=== PATIENT | male | born 1965 | race Caucasian/White ===

== ENCOUNTER 2022-12-14 20:42 | Emergency (ER) | payer OTHER ==
[2022-12-14 22:11] LABS: ALT (SGPT) 50 U/L (8-55); AST (SGOT) 47 U/L (5-34); Albumin 2.9 g/dL (3.5-5.0); Alkaline Phosphatase 151 U/L (40-110); Anion Gap 13 mmol/L (10-20); BUN (Urea Nitrogen) 10 mg/dL (8.4-25.7); Calc. Creatinine Clearance 0 mL/min (70-130); Calcium 8.8 mg/dL (7.8-10.44); Carbon Dioxide 20 mmol/L (22-29); Chloride 110 mmol/L (98-107); Estimated GFR 105; Globulin 3.7 g/dL (2.4-3.5); Glucose 178 mg/dL (70-105); Lipase 43 U/L (8-78); Potassium 4.1 mmol/L (3.5-5.1); Protein, Total 6.6 g/dL (6.0-8.3); Sodium 139 mmol/L (136-145)
[2022-12-14 22:12] LABS: Hemoglobin 13.5 g/dL (13.5-17.5); Mean Corpuscular HGB CONC 36.4 g/dL (32.0-36.0); Mean Corpuscular Hemoglobin 31.4 pg (27.0-33.0); Mean Corpuscular Volume 86.3 fl (81.2-95.1); Mean Platelet Volume 11.4 fl (7.4-10.4); Platelet Count 98 10x3/uL (150-450); RBC Distribution Width 14.7 % (11.5-14.5); White Blood Cell (WBC) Count 4.4 10x3/uL (3.5-10.5)
[2022-12-14 22:12] LABS: Bilirubin 3+ (Negative); Blood, Urine 50 (Negative); Clarity Clear (Clear); Glucose, Urine (Dipstick) Normal (Negative); Ketone, Urine 5 mg/dL (Negative); Leukocyte 25 (Negative); Nitrite Negative (Negative); Protein, Urine (Dipstick) Negative (Neg-Trace); Specific Gravity, Urine 1.025 (1.005-1.030); Urobilinogen 12 mg/dL (Less than 2)
[2022-12-14 22:14] LABS: MDiff Complete? YES; Manual Diff?? YES
[2022-12-14 22:22] LABS: Bacteria/HPF None Seen HPF (None Seen); RBC/HPF 0-3 HPF (0-3); Squamous Epithelial 0-3 HPF (0-3); WBC/HPF 0-3 HPF (0-3)
[2022-12-14 22:41] LABS: Band 2 % (5-11); Eosinophils 7 % (0-10); Lymphocytes 17 % (21-51); Monocytes 14 % (0-10); Neutrophil 58 % (42-75); Reactive Lymphocytes 2 % (0-10)
[2022-12-14 22:42] LABS: Platelet Morphology Comment Appears Decreased
[2022-12-14 22:43] LABS: Anisocytosis SLIGHT = 6-15 cells (100X) (0-5/hpf); Macrocytosis SLIGHT = 6-15 cells (100X) (0-5/hpf); Microcytosis SLIGHT = 6-15 cells (100X) (0-5/hpf)
[2022-12-14 23:10] LABS: SARS-CoV-2 NAA Rapid Test DETECTED (NotDetected)
== END 2022-12-15 01:22 | disposition short-term general hospital (02) ==
LOC: CSHERS 20:42 → EEVIPCON 20:42 → CSHERS 12-15 01:22
DX: U07.1 COVID-19 (principal); K76.82 Hepatic encephalopathy; E11.9 Type 2 diabetes mellitus without complications; I50.9 Heart failure, unspecified; Z79.84 Long term (current) use of oral hypoglycemic drugs
CPT/HCPCS: 80053; 81003; 81015; 82140; 83605; 83690; 85025; 93005; 96360; U0002

== ENCOUNTER 2023-01-29 13:21 | Inpatient (IN) | payer OTHER ==
[2023-01-29 14:23] LABS: ALT (SGPT) 41 U/L (8-55); AST (SGOT) 40 U/L (5-34); Albumin 2.8 g/dL (3.5-5.0); Alkaline Phosphatase 129 U/L (40-110); Anion Gap 13 mmol/L (10-20); BUN (Urea Nitrogen) 9 mg/dL (8.4-25.7); Bilirubin, Total 5.2 mg/dL (0.2-1.2); Calc. Creatinine Clearance 0 mL/min (70-130); Calcium 7.7 mg/dL (7.8-10.44); Carbon Dioxide 17 mmol/L (22-29); Chloride 114 mmol/L (98-107); Estimated GFR 110; Globulin 3.2 g/dL (2.4-3.5); Glucose 151 mg/dL (70-105); Lipase 39 U/L (8-78); Magnesium 1.6 mg/dL (1.6-2.6); Potassium 3.8 mmol/L (3.5-5.1); Sodium 140 mmol/L (136-145)
[2023-01-29 14:27] LABS: #Basophils 0.1 10x3/uL (0.0-0.2); #Eosinphils 0.1 10x3/uL (0.0-0.5); #Monocytes 0.6 10x3/uL (0.0-1.1); %Basophils 1.5 % (0.0-2.0); %Eosinophils 3.3 % (0.0-6.0); %Lymphocytes 17.5 % (18.0-47.0); %Monocytes 17.5 % (0.0-10.0); %Neutrophils 59.6 % (40.0-75.0); Hemoglobin 11.5 g/dL (13.5-17.5); Mean Corpuscular HGB CONC 36.5 g/dL (32.0-36.0); Mean Corpuscular Hemoglobin 32.6 pg (27.0-33.0); Mean Corpuscular Volume 89.2 fl (81.2-95.1); Mean Platelet Volume 10.5 fl (7.4-10.4); Platelet Count 86 10x3/uL (150-450); RBC Distribution Width 17.2 % (11.5-14.5); Red Blood Cell (RBC) Count 3.53 10x6/uL (4.32-5.72); White Blood Cell (WBC) Count 3.4 10x3/uL (3.5-10.5)
[2023-01-29] MEDS ORDERED: Ibuprofen 200 MG TAB ONE (15:19)
[2023-01-29] MEDS ORDERED: cefTRIAXone (ROCEPHIN) 2 GM VIAL ONE (20:14)
[2023-01-29] MEDS ORDERED: Cefepime 2 GM VIAL ONE (20:42)
[2023-01-29] MEDS ORDERED: Dextrose 50% Abboject 50 ML SYRINGE SLOW IVP PRN (21:45)
[2023-01-29] MEDS ORDERED: Dextrose 5% in Water 1,000 ML IV PRN (21:45)
[2023-01-29] MEDS ORDERED: HumaLOG 300 UNITS/3 ML VIAL SC PRN (21:45)
[2023-01-29] MEDS ORDERED: Magnesium 2 GM/50 ML(in water) 2 GM in Premix Bag 1 BAG IVPB SCH (22:30)
[2023-01-29] MEDS ORDERED: Metoprolol Tartrate 25 MG TAB PO SCH (22:30)
[2023-01-29] MEDS ORDERED: Gabapentin 100 MG CAP PO SCH (22:30)
[2023-01-29] MEDS ORDERED: Potassium Chloride 20 MEQ in Premix Bag 1 BAG IVPB SCH (22:30)
[2023-01-29] MEDS ORDERED: levETIRAcetam 500 MG TAB PO SCH (22:30)
[2023-01-29] MEDS ORDERED: Magnesium 2 GM/50 ML BAG (IN WATER) ONE (22:32)
[2023-01-29] MEDS: Sodium Chloride 0.9% 1,000 ML IV SCH (22:38)
[2023-01-29] MEDS ORDERED: Rifaximin 550 MG TAB PO SCH (22:45)
[2023-01-29 22:59] LABS: Lactic Acid 2.2 mmol/L (0.5-2.2)
[2023-01-29] MEDS ORDERED: Metoprolol Tartrate 25 MG TAB ONE (23:28)
[2023-01-29] MEDS ORDERED: levETIRAcetam 500 MG TAB ONE (23:29)
[2023-01-29] MEDS ORDERED: RIFAXIMIN 200MG TABLET PO SCH (23:45)
[2023-01-30] MEDS ORDERED: Potassium Chloride 20 MEQ/100 ML PREMIX BAG ONE (01:29)
[2023-01-30] MEDS ORDERED: Lorazepam 2 MG/ML VIAL ONE (01:44)
[2023-01-30] MEDS ORDERED: Lorazepam 2 MG/ML VIAL SLOW IVP SCH (01:45)
[2023-01-30] MEDS: VANCOMYCIN 1.25 GM/250 ML BAG 1.25 GM in Premix Bag 1 BAG IVPB SCH ×2 (01:47→14:43)
[2023-01-30] MEDS ORDERED: Potassium Chloride 20 MEQ in Premix Bag 1 BAG IVPB SCH (02:00)
[2023-01-30 04:06] LABS: Anion Gap 10 mmol/L (10-20); BUN (Urea Nitrogen) 9 mg/dL (8.4-25.7); Calc. Creatinine Clearance 136 mL/min (70-130); Calcium 7.7 mg/dL (7.8-10.44); Carbon Dioxide 19 mmol/L (22-29); Chloride 113 mmol/L (98-107); Estimated GFR 108; Glucose 171 mg/dL (70-105); Magnesium 2.3 mg/dL (1.6-2.6); Potassium 4.3 mmol/L (3.5-5.1); Sodium 138 mmol/L (136-145)
[2023-01-30 04:09] LABS: Hemoglobin 11.6 g/dL (13.5-17.5); Mean Corpuscular HGB CONC 35.7 g/dL (32.0-36.0); Mean Corpuscular Volume 89.8 fl (81.2-95.1); Platelet Count 88 10x3/uL (150-450); RBC Distribution Width 17.2 % (11.5-14.5); Red Blood Cell (RBC) Count 3.62 10x6/uL (4.32-5.72)
[2023-01-30 04:11] LABS: MDiff Complete? YES
[2023-01-30 04:25] LABS: Band 7 % (5-11); Eosinophils 4 % (0-10); Lymphocytes 13 % (21-51); Monocytes 17 % (0-10); Neutrophil 59 % (42-75)
[2023-01-30 04:26] LABS: Platelet Morphology Comment Appears Decreased; RBC Morphology Normal
[2023-01-30 04:27] LABS: Free T4 (Free Thyroxine) 1.14 ng/dL (0.70-1.48); Thyroid Stimulating Hormone 4.6141 uIU/mL (0.35-4.94)
[2023-01-30] MEDS ORDERED: Metoprolol Tartrate 25 MG TAB ONE (08:49)
[2023-01-30] MEDS ORDERED: Multivitamin W/ Minerals 1 TAB ONE (08:50)
[2023-01-30] MEDS ORDERED: Cefepime 2 GM VIAL ONE (08:52)
[2023-01-30] MEDS ORDERED: RIFAXIMIN 200MG TABLET PO SCH (09:00)
[2023-01-30] MEDS ORDERED: Rifaximin 550 MG TAB PO SCH ×3 (09:00→21:00)
[2023-01-30] MEDS: Insulin Regular 300 UNITS/3 ML VIAL SC SCH ×3 (09:00→17:01)
[2023-01-30] MEDS: Cefepime 2 GM in Sodium Chloride 0.9% 100 ML IVPB SCH ×2 (09:16→20:28)
[2023-01-30] MEDS: Multivitamin W/ Minerals 1 TAB PO SCH (09:19)
[2023-01-30] MEDS: Metoprolol Tartrate 25 MG TAB PO SCH ×2 (09:19→20:31)
[2023-01-30] MEDS: Magnesium Oxide 400 MG TAB PO SCH (09:48)
[2023-01-30] MEDS: Gabapentin 100 MG CAP PO SCH ×3 (09:49→20:31)
[2023-01-30] MEDS: Thiamine 100 MG TAB PO SCH (09:50)
[2023-01-30] MEDS: Levothyroxine Sodium 25 MCG TAB PO SCH (09:50)
[2023-01-30] MEDS: Insulin NPH Human Isophane 100 UNITS/ML (10 ML VIAL) SC SCH ×2 (12:00→20:46)
[2023-01-30] MEDS ORDERED: Insulin Regular 300 UNITS/3 ML VIAL ONE (12:10)
[2023-01-30] MEDS ORDERED: traMADol HCl 50 MG TAB PO SCH (12:15)
[2023-01-30] MEDS: Sodium Chloride 0.9% 1,000 ML IV SCH (12:17)
[2023-01-30] MEDS ORDERED: traMADol HCl 50 MG TAB ONE (12:58)
[2023-01-30] MEDS: levETIRAcetam 500 MG TAB PO SCH (20:31)
[2023-01-31] MEDS: VANCOMYCIN 1.25 GM/250 ML BAG 1.25 GM in Premix Bag 1 BAG IVPB SCH ×2 (00:50→15:31)
[2023-01-31] MEDS: RIFAXIMIN 200MG TABLET PO SCH ×3 (00:56→22:04)
[2023-01-31] MEDS: Sodium Chloride 0.9% 1,000 ML IV SCH ×2 (01:30→16:44)
[2023-01-31 03:43] LABS: Vancomycin, Trough 39.7 ug/mL
[2023-01-31] MEDS ORDERED: Lorazepam 2 MG/ML VIAL SLOW IVP SCH (04:00)
[2023-01-31] MEDS: Levothyroxine Sodium 25 MCG TAB PO SCH (05:51)
[2023-01-31 10:39] LABS: Hemoglobin 11.7 g/dL (13.5-17.5); Mean Corpuscular HGB CONC 35.6 g/dL (32.0-36.0); Mean Corpuscular Volume 92.7 fl (81.2-95.1); Mean Platelet Volume 11.2 fl (7.4-10.4); Platelet Count 91 10x3/uL (150-450); RBC Distribution Width 17.4 % (11.5-14.5); Red Blood Cell (RBC) Count 3.55 10x6/uL (4.32-5.72); White Blood Cell (WBC) Count 5.7 10x3/uL (3.5-10.5)
[2023-01-31 10:40] LABS: MDiff Complete? YES
[2023-01-31] MEDS: Insulin Regular 300 UNITS/3 ML VIAL SC SCH ×3 (10:49→18:10)
[2023-01-31] MEDS: Insulin NPH Human Isophane 100 UNITS/ML (10 ML VIAL) SC SCH ×2 (10:50→22:06)
[2023-01-31] MEDS: Cefepime 2 GM in Sodium Chloride 0.9% 100 ML IVPB SCH (10:52)
[2023-01-31] MEDS: Metoprolol Tartrate 25 MG TAB PO SCH ×2 (10:52→21:59)
[2023-01-31] MEDS: Multivitamin W/ Minerals 1 TAB PO SCH (10:53)
[2023-01-31] MEDS: Thiamine 100 MG TAB PO SCH (10:53)
[2023-01-31] MEDS: Magnesium Oxide 400 MG TAB PO SCH (10:53)
[2023-01-31 10:56] LABS: Eosinophils 3 % (0-10); Lymphocytes 14 % (21-51); Monocytes 12 % (0-10); Neutrophil 71 % (42-75)
[2023-01-31] MEDS: Gabapentin 100 MG CAP PO SCH ×3 (11:03→22:05)
[2023-01-31 11:06] LABS: Anisocytosis SLIGHT = 6-15 cells (100X) (0-5/hpf); Platelet Morphology Comment Appears Decreased
[2023-01-31 12:26] LABS: Vancomycin, Trough 12.9 ug/mL
[2023-01-31 12:46] LABS: Anion Gap 15 mmol/L (10-20); BUN (Urea Nitrogen) 9 mg/dL (8.4-25.7); Calc. Creatinine Clearance 140 mL/min (70-130); Calcium 8.3 mg/dL (7.8-10.44); Carbon Dioxide 16 mmol/L (22-29); Chloride 114 mmol/L (98-107); Estimated GFR 109; Glucose 153 mg/dL (70-105); Magnesium 1.8 mg/dL (1.6-2.6); Potassium 4.1 mmol/L (3.5-5.1); Sodium 141 mmol/L (136-145)
[2023-01-31] MEDS: levETIRAcetam 500 MG TAB PO SCH (21:59)
[2023-02-01] MEDS: Sodium Chloride 0.9% 1,000 ML IV SCH ×3 (04:29→17:10)
[2023-02-01] MEDS ORDERED: Dicyclomine 10 MG CAP PO SCH (04:45)
[2023-02-01] MEDS: Levothyroxine Sodium 25 MCG TAB PO SCH (04:52)
[2023-02-01 07:40] LABS: Anion Gap 14 mmol/L (10-20); BUN (Urea Nitrogen) 9 mg/dL (8.4-25.7); Calc. Creatinine Clearance 142 mL/min (70-130); Calcium 7.5 mg/dL (7.8-10.44); Carbon Dioxide 17 mmol/L (22-29); Chloride 113 mmol/L (98-107); Estimated GFR 110; Glucose 136 mg/dL (70-105); Potassium 4.7 mmol/L (3.5-5.1); Sodium 139 mmol/L (136-145)
[2023-02-01 07:47] LABS: Hemoglobin 11.4 g/dL (13.5-17.5); Mean Corpuscular HGB CONC 36.2 g/dL (32.0-36.0); Mean Corpuscular Hemoglobin 32.5 pg (27.0-33.0); Mean Corpuscular Volume 89.7 fl (81.2-95.1); Mean Platelet Volume 10.8 fl (7.4-10.4); Platelet Count 91 10x3/uL (150-450); RBC Distribution Width 17.8 % (11.5-14.5); Red Blood Cell (RBC) Count 3.51 10x6/uL (4.32-5.72)
[2023-02-01 08:05] LABS: MDiff Complete? YES
[2023-02-01 08:24] LABS: Band 4 % (5-11); Eosinophils 8 % (0-10); Lymphocytes 18 % (21-51); Monocytes 10 % (0-10); Neutrophil 60 % (42-75); Platelet Morphology Comment Appears Decreased
[2023-02-01 08:26] LABS: Anisocytosis SLIGHT = 6-15 cells (100X) (0-5/hpf)
[2023-02-01] MEDS ORDERED: HYDROmorphone 0.5 MG/0.5 ML SYRINGE SLOW IVP SCH (09:00)
[2023-02-01] MEDS: Magnesium Oxide 400 MG TAB PO SCH (09:41)
[2023-02-01] MEDS: Multivitamin W/ Minerals 1 TAB PO SCH ×2 (09:41→09:42)
[2023-02-01] MEDS: Thiamine 100 MG TAB PO SCH (09:42)
[2023-02-01] MEDS: Metoprolol Tartrate 25 MG TAB PO SCH ×2 (09:42→21:32)
[2023-02-01] MEDS: Insulin Regular 300 UNITS/3 ML VIAL SC SCH ×3 (09:43→17:09)
[2023-02-01] MEDS: Insulin NPH Human Isophane 100 UNITS/ML (10 ML VIAL) SC SCH ×2 (09:44→21:55)
[2023-02-01] MEDS: RIFAXIMIN 200MG TABLET PO SCH (09:46)
[2023-02-01] MEDS: Gabapentin 100 MG CAP PO SCH ×3 (12:02→21:32)
[2023-02-01 15:12] LABS: Magnesium 1.7 mg/dL (1.6-2.6)
[2023-02-01] MEDS: levETIRAcetam 500 MG TAB PO SCH (21:32)
[2023-02-01] MEDS: Rifaximin 550 MG TAB PO SCH (21:38)
[2023-02-02] MEDS: Sodium Chloride 0.9% 1,000 ML IV SCH ×2 (00:29→17:43)
[2023-02-02 05:18] LABS: Anion Gap 13 mmol/L (10-20); BUN (Urea Nitrogen) 9 mg/dL (8.4-25.7); Calc. Creatinine Clearance 130 mL/min (70-130); Calcium 7.6 mg/dL (7.8-10.44); Carbon Dioxide 19 mmol/L (22-29); Chloride 111 mmol/L (98-107); Estimated GFR 107; Glucose 175 mg/dL (70-105); Potassium 3.8 mmol/L (3.5-5.1); Sodium 139 mmol/L (136-145)
[2023-02-02 05:26] LABS: Hemoglobin 10.9 g/dL (13.5-17.5); MDiff Complete? YES; Mean Corpuscular HGB CONC 36.1 g/dL (32.0-36.0); Mean Corpuscular Hemoglobin 32.6 pg (27.0-33.0); Mean Corpuscular Volume 90.4 fl (81.2-95.1); Mean Platelet Volume 11.7 fl (7.4-10.4); Platelet Count 84 10x3/uL (150-450); RBC Distribution Width 17.8 % (11.5-14.5); Red Blood Cell (RBC) Count 3.34 10x6/uL (4.32-5.72); White Blood Cell (WBC) Count 3.6 10x3/uL (3.5-10.5)
[2023-02-02] MEDS: Levothyroxine Sodium 25 MCG TAB PO SCH (06:03)
[2023-02-02 07:06] LABS: Band 4 % (5-11); Eosinophils 5 % (0-10); Lymphocytes 11 % (21-51); Monocytes 12 % (0-10); Neutrophil 68 % (42-75)
[2023-02-02 07:08] LABS: Macrocytosis SLIGHT = 6-15 cells (100X) (0-5/hpf)
[2023-02-02 07:09] LABS: Platelet Morphology Comment Appears Decreased
[2023-02-02] MEDS: Thiamine 100 MG TAB PO SCH (08:44)
[2023-02-02] MEDS: Multivitamin W/ Minerals 1 TAB PO SCH (08:44)
[2023-02-02] MEDS: Magnesium Oxide 400 MG TAB PO SCH (08:45)
[2023-02-02] MEDS: Metoprolol Tartrate 25 MG TAB PO SCH ×2 (08:45→21:23)
[2023-02-02] MEDS: Gabapentin 100 MG CAP PO SCH ×3 (08:47→21:23)
[2023-02-02] MEDS: Rifaximin 550 MG TAB PO SCH ×2 (08:50→21:23)
[2023-02-02] MEDS: Insulin Regular 300 UNITS/3 ML VIAL SC SCH ×3 (08:53→17:46)
[2023-02-02] MEDS: Insulin NPH Human Isophane 100 UNITS/ML (10 ML VIAL) SC SCH ×2 (08:59→21:22)
[2023-02-02] MEDS ORDERED: cefTRIAXone\\ROCEPHIN 2 GM in Sodium Chloride 0.9% 100 ML IVPB SCH (18:45)
[2023-02-02] MEDS ORDERED: cefTRIAXone\\ROCEPHIN 1 GM in Sodium Chloride 0.9% 100 ML IVPB SCH (18:45)
[2023-02-02] MEDS: cefTRIAXone\\ROCEPHIN 1 GM in Sodium Chloride 0.9% 100 ML IVPB SCH (21:21)
[2023-02-02] MEDS: levETIRAcetam 500 MG TAB PO SCH (21:22)
[2023-02-03] MEDS ORDERED: Ondansetron PF 4 MG/2 ML Vial IVP PRN (01:50)
[2023-02-03] MEDS: Acetaminophen 325 MG TAB PO PRN ×3 (01:59→18:41)
[2023-02-03] MEDS: Levothyroxine Sodium 25 MCG TAB PO SCH (05:59)
[2023-02-03 06:30] LABS: Hemoglobin 11.2 g/dL (13.5-17.5); Mean Corpuscular HGB CONC 36.2 g/dL (32.0-36.0); Mean Corpuscular Hemoglobin 32.7 pg (27.0-33.0); Mean Corpuscular Volume 90.4 fl (81.2-95.1); Mean Platelet Volume 10.8 fl (7.4-10.4); Platelet Count 87 10x3/uL (150-450); RBC Distribution Width 18.3 % (11.5-14.5); Red Blood Cell (RBC) Count 3.42 10x6/uL (4.32-5.72); White Blood Cell (WBC) Count 4.7 10x3/uL (3.5-10.5)
[2023-02-03 06:32] LABS: MDiff Complete? YES
[2023-02-03 06:38] LABS: ALT (SGPT) 44 U/L (8-55); AST (SGOT) 52 U/L (5-34); Albumin 2.4 g/dL (3.5-5.0); Alkaline Phosphatase 124 U/L (40-110); Anion Gap 12 mmol/L (10-20); BUN (Urea Nitrogen) 9 mg/dL (8.4-25.7); Bilirubin, Total 3.3 mg/dL (0.2-1.2); Calc. Creatinine Clearance 130 mL/min (70-130); Calcium 7.6 mg/dL (7.8-10.44); Carbon Dioxide 19 mmol/L (22-29); Chloride 111 mmol/L (98-107); Estimated GFR 107; Glucose 162 mg/dL (70-105); Magnesium 1.6 mg/dL (1.6-2.6); Potassium 4.1 mmol/L (3.5-5.1); Protein, Total 5.4 g/dL (6.0-8.3); Sodium 138 mmol/L (136-145)
[2023-02-03 08:12] LABS: Band 3 % (5-11); Eosinophils 4 % (0-10); Lymphocytes 21 % (21-51); Monocytes 11 % (0-10); Neutrophil 61 % (42-75); Platelet Morphology Comment Appears Decreased
[2023-02-03 08:13] LABS: Macrocytosis SLIGHT = 6-15 cells (100X) (0-5/hpf)
[2023-02-03 08:33] LABS: Clarity Clear (Clear); Leukocyte 25 (Negative); Nitrite Negative (Negative); Specific Gravity, Urine 1.015 (1.005-1.030); pH, Urine 6.5 (5.0-9.0)
[2023-02-03 08:34] LABS: Bilirubin 3+ (Negative); Blood, Urine 25 (Negative); Glucose, Urine (Dipstick) Normal (Negative); Ketone, Urine 5 mg/dL (Negative); Protein, Urine (Dipstick) 15 mg/dl (Neg-Trace); Urobilinogen 12 mg/dL (Less than 2)
[2023-02-03 08:42] LABS: Bacteria/HPF 1+ HPF (None Seen); CAUTI Indications for Culture Alt mental st,lethar
[2023-02-03] MEDS: Multivitamin W/ Minerals 1 TAB PO SCH (08:49)
[2023-02-03] MEDS: Magnesium Oxide 400 MG TAB PO SCH (08:49)
[2023-02-03] MEDS: Thiamine 100 MG TAB PO SCH (08:50)
[2023-02-03] MEDS: Insulin NPH Human Isophane 100 UNITS/ML (10 ML VIAL) SC SCH ×2 (08:51→21:38)
[2023-02-03] MEDS: Insulin Regular 300 UNITS/3 ML VIAL SC SCH ×3 (08:53→17:17)
[2023-02-03 09:06] LABS: Mucous/LPF 1+ LPF (<2+)
[2023-02-03 09:12] LABS: Urine Culture Reflex No No
[2023-02-03] MEDS: Gabapentin 100 MG CAP PO SCH ×3 (09:19→21:22)
[2023-02-03] MEDS: Rifaximin 550 MG TAB PO SCH ×2 (09:19→21:22)
[2023-02-03] MEDS: Metoprolol Tartrate 25 MG TAB PO SCH ×2 (09:21→21:23)
[2023-02-03] MEDS: Sodium Chloride 0.9% 1,000 ML IV SCH ×2 (09:22→21:33)
[2023-02-03] MEDS ORDERED: cefTRIAXone (ROCEPHIN) 1 GM VIAL ONE (21:04)
[2023-02-03] MEDS: cefTRIAXone\\ROCEPHIN 1 GM in Sodium Chloride 0.9% 100 ML IVPB SCH (21:26)
[2023-02-03] MEDS: levETIRAcetam 500 MG TAB PO SCH (21:38)
[2023-02-04] MEDS: Levothyroxine Sodium 25 MCG TAB PO SCH (06:33)
[2023-02-04 09:06] LABS: #Basophils 0.1 10x3/uL (0.0-0.2); #Eosinphils 0.5 10x3/uL (0.0-0.5); #Monocytes 0.7 10x3/uL (0.0-1.1); #Neutrophils 2.9 10x3/uL (1.5-8.4); %Basophils 1.8 % (0.0-2.0); %Eosinophils 9.1 % (0.0-6.0); %Lymphocytes 14.2 % (18.0-47.0); %Monocytes 14.8 % (0.0-10.0); %Neutrophils 59.9 % (40.0-75.0); Hemoglobin 11.7 g/dL (13.5-17.5); Mean Corpuscular Hemoglobin 32.8 pg (27.0-33.0); Mean Corpuscular Volume 93.6 fl (81.2-95.1); Mean Platelet Volume 11.3 fl (7.4-10.4); Platelet Count 101 10x3/uL (150-450); RBC Distribution Width 19.2 % (11.5-14.5); Red Blood Cell (RBC) Count 3.57 10x6/uL (4.32-5.72); White Blood Cell (WBC) Count 4.9 10x3/uL (3.5-10.5)
[2023-02-04 09:07] LABS: ALT (SGPT) 39 U/L (8-55); AST (SGOT) 45 U/L (5-34); Albumin 2.5 g/dL (3.5-5.0); Alkaline Phosphatase 124 U/L (40-110); Anion Gap 11 mmol/L (10-20); BUN (Urea Nitrogen) 9 mg/dL (8.4-25.7); Calc. Creatinine Clearance 130 mL/min (70-130); Calcium 7.5 mg/dL (7.8-10.44); Carbon Dioxide 22 mmol/L (22-29); Chloride 111 mmol/L (98-107); Estimated GFR 107; Glucose 158 mg/dL (70-105); Protein, Total 5.5 g/dL (6.0-8.3); Sodium 140 mmol/L (136-145)
[2023-02-04] MEDS: Insulin NPH Human Isophane 100 UNITS/ML (10 ML VIAL) SC SCH ×2 (09:34→21:27)
[2023-02-04] MEDS: Insulin Regular 300 UNITS/3 ML VIAL SC SCH ×3 (09:35→18:00)
[2023-02-04] MEDS: Thiamine 100 MG TAB PO SCH (09:35)
[2023-02-04] MEDS: Acetaminophen 325 MG TAB PO PRN ×2 (09:37→16:00)
[2023-02-04] MEDS: Metoprolol Tartrate 25 MG TAB PO SCH ×2 (09:38→21:28)
[2023-02-04] MEDS: Magnesium Oxide 400 MG TAB PO SCH (09:38)
[2023-02-04] MEDS: Multivitamin W/ Minerals 1 TAB PO SCH (09:38)
[2023-02-04] MEDS: Gabapentin 100 MG CAP PO SCH ×3 (09:39→21:25)
[2023-02-04] MEDS: Rifaximin 550 MG TAB PO SCH ×2 (09:40→21:28)
[2023-02-04] MEDS: Sodium Chloride 0.9% 1,000 ML IV SCH (12:52)
[2023-02-04] MEDS ORDERED: Ketorolac Tromethamine 30 MG/ML VIAL IVP SCH (18:30)
[2023-02-04] MEDS ORDERED: diphenhydrAMINE 25 MG CAP PO SCH (21:00)
[2023-02-04] MEDS: cefTRIAXone\\ROCEPHIN 1 GM in Sodium Chloride 0.9% 100 ML IVPB SCH (21:26)
[2023-02-04] MEDS: levETIRAcetam 500 MG TAB PO SCH (21:28)
[2023-02-05] MEDS: Sodium Chloride 0.9% 1,000 ML IV SCH (03:18)
[2023-02-05 05:23] LABS: #Basophils 0.1 10x3/uL (0.0-0.2); #Eosinphils 0.4 10x3/uL (0.0-0.5); #Monocytes 0.6 10x3/uL (0.0-1.1); #Neutrophils 2.4 10x3/uL (1.5-8.4); %Basophils 1.8 % (0.0-2.0); %Eosinophils 8.6 % (0.0-6.0); %Lymphocytes 20.4 % (18.0-47.0); %Monocytes 14.5 % (0.0-10.0); %Neutrophils 54.5 % (40.0-75.0); Mean Corpuscular HGB CONC 34.8 g/dL (32.0-36.0); Mean Corpuscular Hemoglobin 33.1 pg (27.0-33.0); Mean Corpuscular Volume 95.2 fl (81.2-95.1); Mean Platelet Volume 11.6 fl (7.4-10.4); Platelet Count 95 10x3/uL (150-450); RBC Distribution Width 19.7 % (11.5-14.5); Red Blood Cell (RBC) Count 3.32 10x6/uL (4.32-5.72); White Blood Cell (WBC) Count 4.4 10x3/uL (3.5-10.5)
[2023-02-05 05:31] LABS: ALT (SGPT) 36 U/L (8-55); AST (SGOT) 40 U/L (5-34); Albumin 2.2 g/dL (3.5-5.0); Alkaline Phosphatase 119 U/L (40-110); Anion Gap 11 mmol/L (10-20); BUN (Urea Nitrogen) 12 mg/dL (8.4-25.7); Bilirubin, Total 2.7 mg/dL (0.2-1.2); Calc. Creatinine Clearance 121 mL/min (70-130); Calcium 7.9 mg/dL (7.8-10.44); Carbon Dioxide 20 mmol/L (22-29); Chloride 112 mmol/L (98-107); Estimated GFR 104; Glucose 160 mg/dL (70-105); Potassium 3.9 mmol/L (3.5-5.1); Protein, Total 5.2 g/dL (6.0-8.3); Sodium 139 mmol/L (136-145)
[2023-02-05] MEDS: Levothyroxine Sodium 25 MCG TAB PO SCH (05:52)
[2023-02-05] MEDS: Acetaminophen 325 MG TAB PO PRN (09:02)
[2023-02-05] MEDS: Gabapentin 100 MG CAP PO SCH (09:03)
[2023-02-05] MEDS: Multivitamin W/ Minerals 1 TAB PO SCH (09:03)
[2023-02-05] MEDS: Thiamine 100 MG TAB PO SCH (09:03)
[2023-02-05] MEDS: Metoprolol Tartrate 25 MG TAB PO SCH (09:04)
[2023-02-05] MEDS: Insulin NPH Human Isophane 100 UNITS/ML (10 ML VIAL) SC SCH (09:04)
[2023-02-05] MEDS: Magnesium Oxide 400 MG TAB PO SCH (09:04)
[2023-02-05] MEDS: Insulin Regular 300 UNITS/3 ML VIAL SC SCH ×2 (09:05→12:15)
[2023-02-05] MEDS: Rifaximin 550 MG TAB PO SCH (12:15)
[2023-02-05 12:41] LABS: HBCM Index 0.11 S/CO (0-0.79); HBSAg Index 0.16 S/CO (0-0.99); Hep A IgM AB Non-Reactive S/CO (NonReactive); Hep A IgM S/CO 0.26 S/CO (0-0.79); Hep B Surf Ag Non-Reactive S/CO (NonReactive); Hepatitis B Core IgM Abs Non-Reactive S/CO (NonReactive)
[2023-02-05 12:47] LABS: Hep C IgG Ab Reflex HepC Qnt S/CO (NonReactive); Hep C Index 14.81 S/CO (0-0.79)
[2023-02-05 16:33] VITALS: BP 123/71; TEMP 98.9
[2023-02-08 16:15] LABS: Hep C PCR-Quant HCV Not Detected IU/mL (.)
== END 2023-02-05 16:30 | disposition home or self-care (01) | DRG 872 ==
LOC: EEVIPCON 13:21 → CSHERS 13:21 → CSHERHOLD 20:31 → CSHTELE 01-30 14:26
PROVIDERS: ADMIT Family Medicine; ATTEND Internal Medicine
PROC: 3E03329 Introduction of Other Anti-infective into Peripheral Vein, Percutaneous Approach (ICD-10-PCS; 2023-01-29)
PROC: 02H633Z Insertion of Infusion Device into Right Atrium, Percutaneous Approach (ICD-10-PCS; principal; 2023-01-30)
PROC: B548ZZA Ultrasonography of Superior Vena Cava, Guidance (ICD-10-PCS; 2023-01-30)
DX: A41.9 Sepsis, unspecified organism (principal); E87.20 Acidosis, unspecified; N39.0 Urinary tract infection, site not specified; K76.82 Hepatic encephalopathy; K74.60 Unspecified cirrhosis of liver; I50.9 Heart failure, unspecified; E11.9 Type 2 diabetes mellitus without complications; G40.909 Epilepsy, unspecified, not intractable, without status epilepticus; K80.20 Calculus of gallbladder without cholecystitis without obstruction; K40.90 Unilateral inguinal hernia, without obstruction or gangrene, not specified as recurrent; E83.42 Hypomagnesemia; Z88.5 Allergy status to narcotic agent; Z91.010 Allergy to peanuts; Z88.8 Allergy status to other drugs, medicaments and biological substances
CPT/HCPCS: 36415; 36416; 71045; 74176; 76705; 80048; 80053; 80074; 80202; 81001; 82140; 82306; 82330; 83605; 83690; 83735; 84145; 84439; 84443; 85025; 87040; 87086; 87522; 96365; J0692; J0696; J1170; J1650; J1815; J1885; J2060; J3370; J3475; J3480; J3490; J7050

== ENCOUNTER 2023-09-18 21:35 | Emergency (ER) | payer OTHER | END 2023-09-18 22:51 | disposition left against medical advice (07) | LOC: CSHERS 21:35 → EEVIPCON 21:35 → CSHERS 22:51 | DX: R41.0 Disorientation, unspecified (principal); I50.9 Heart failure, unspecified; E11.9 Type 2 diabetes mellitus without complications; Z79.82 Long term (current) use of aspirin; Z79.4 Long term (current) use of insulin; Z79.84 Long term (current) use of oral hypoglycemic drugs | CPT/HCPCS: 93005 ==